=== PATIENT | male | born 1945 | race Two or more races ===

== ENCOUNTER 2017-02-14 08:46 | Outpatient (CLI) | payer MEDICARE, OTHER ==
[2017-02-14 13:38] LABS: CALCIUM 9.1 mg/dL (8.5-10.3); CREATININE 0.9 mg/dL (0.6-1.2); POTASSIUM 3.9 mmol/L (3.5-5.0)
[2017-02-14 13:54] LABS: HEMOGLOBIN A1C 0.82 g/dL
== END 2017-02-14 08:47 | disposition home or self-care (01) ==
LOC: LAB.WCP 08:46
PROVIDERS: ATTEND Family Medicine
DX: E78.5 Hyperlipidemia, unspecified (principal)
CPT/HCPCS: 36415; 80048; 83036

== ENCOUNTER 2017-09-02 07:40 | Outpatient (CLI) | payer MEDICARE, OTHER ==
[2017-09-02 12:32] LABS: BASOPHILS % (AUTO) 0.5 %; EOSINOPHILS # (AUTO) 0.3 10^3/uL (0.0-0.7); EOSINOPHILS % (AUTO) 5.8 %; HCT - HEMATOCRIT 37.1 % (42.0-52.0); LYMPHOCYTES # (AUTO) 2.5 10^3/uL (1.5-3.5); LYMPHOCYTES % (AUTO) 44.2 %; MEAN CORPUSCULAR VOLUME 91.4 fL (80.0-94.0); MEAN PLATELET VOLUME 8.8 fL (7.4-11.4); MONOCYTES # (AUTO) 0.4 10^3/uL (0.0-1.0); MONOCYTES % (AUTO) 7.6 %; NEUTROPHILS # (AUTO) 2.3 10^3/uL (1.5-6.6); NEUTROPHILS % (AUTO) 41.9 %; RED BLOOD COUNT 4.06 10^6/uL (4.70-6.10); RED CELL DISTRIBUTION WIDTH 13.8 % (12.0-15.0); UNCORRECTED WHITE BLOOD COUNT 5.5 x10^3/uL; WHITE BLOOD COUNT 5.5 x10^3/uL (4.8-10.8)
[2017-09-02 12:59] LABS: ALBUMIN/GLOBULIN RATIO 1.3 (1.0-2.2); BILIRUBIN,TOTAL 0.6 mg/dL (0.2-1.0); BUN - BLOOD UREA NITROGEN 29 mg/dL (6-20); CALCIUM 8.9 mg/dL (8.5-10.3); CARBON DIOXIDE - CO2 25 mmol/L (21-32); CHLORIDE 102 mmol/L (101-111); CHOL/HDL RATIO 2.9 (<5.0); CHOLESTEROL 141 mg/dL; CREATININE 0.9 mg/dL (0.6-1.2); GFR - MDRD 83 (>89); GLUCOSE 141 mg/dL (70-100); HDL CHOLESTEROL 48 mg/dL; LDL/HDL RATIO 1.4 (<3.6); POTASSIUM 3.9 mmol/L (3.5-5.0); SODIUM 135 mmol/L (135-145); TOTAL PROTEIN 7.5 g/dL (6.7-8.2); TRIGLYCERIDES 122 mg/dL; VLDL CHOLESTEROL 24 mg/dL
[2017-09-02 13:08] LABS: HEMOGLOBIN A1C 0.7 g/dL
== END 2017-09-02 07:41 | disposition home or self-care (01) ==
LOC: LAB.WCP 07:40
PROVIDERS: ATTEND Family Medicine
DX: N18.9 Chronic kidney disease, unspecified (principal); Z79.899 Other long term (current) drug therapy; E78.5 Hyperlipidemia, unspecified; E11.9 Type 2 diabetes mellitus without complications; I10 Essential (primary) hypertension
CPT/HCPCS: 36415; 80053; 80061; 82043; 83036; 85025; G0103; 84153

== ENCOUNTER 2018-03-06 08:00 | Outpatient (CLI) | payer MEDICARE, OTHER ==
[2018-03-06 12:49] LABS: CREATININE 0.8 mg/dL (0.6-1.2)
[2018-03-06 13:37] LABS: HB2 TOTAL 14.1 g/dL; HEMOGLOBIN A1C 0.76 g/dL; HEMOGLOBIN A1C % 7.1 % (4.6-6.2)
== END 2018-03-06 08:01 ==
LOC: LAB.WCP 08:00
PROVIDERS: ATTEND Family Medicine
DX: Z12.5 Encounter for screening for malignant neoplasm of prostate (principal); E11.9 Type 2 diabetes mellitus without complications; N18.9 Chronic kidney disease, unspecified; E78.5 Hyperlipidemia, unspecified; I12.9 Hypertensive chronic kidney disease with stage 1 through stage 4 chronic kidney disease, or unspecified chronic kidney disease
CPT/HCPCS: 36415; 80048; 83036

== ENCOUNTER 2018-06-20 08:32 | Outpatient (CLI) | payer MEDICARE, OTHER ==
[2018-06-20 12:52] LABS: ALBUMIN 4.2 g/dL (3.2-5.5); ALBUMIN/GLOBULIN RATIO 1.3 (1.0-2.2); ALKALINE PHOSPHATASE 37 IU/L (42-121); ALT ALANINE AMINOTRANSFERASE 14 IU/L (10-60); AST ASPARTATE AMINOTRANSFERASE 24 IU/L (10-42); BILIRUBIN,TOTAL 0.8 mg/dL (0.2-1.0); BUN - BLOOD UREA NITROGEN 24 mg/dL (6-20); CALCIUM 8.7 mg/dL (8.5-10.3); CARBON DIOXIDE - CO2 26 mmol/L (21-32); CHLORIDE 102 mmol/L (101-111); CHOL/HDL RATIO 2.8 (<5.0); CHOLESTEROL 121 mg/dL; CREATININE 0.9 mg/dL (0.6-1.2); GFR - MDRD 83 (>89); GLUCOSE 124 mg/dL (70-100); HDL CHOLESTEROL 44 mg/dL; LDL CHOLESTEROL,CALCULATED 55 mg/dL; LDL/HDL RATIO 1.3 (<3.6); SODIUM 139 mmol/L (135-145); TOTAL PROTEIN 7.4 g/dL (6.7-8.2); VLDL CHOLESTEROL 22 mg/dL
[2018-06-20 13:08] LABS: HEMOGLOBIN A1C 0.71 g/dL; HEMOGLOBIN A1C % 6.8 % (4.6-6.2)
== END 2018-06-20 08:33 | disposition home or self-care (01) ==
LOC: LAB.WCP 08:32
PROVIDERS: ATTEND Family Medicine
DX: I10 Essential (primary) hypertension (principal); E11.22 Type 2 diabetes mellitus with diabetic chronic kidney disease; N18.9 Chronic kidney disease, unspecified
CPT/HCPCS: 36415; 80053; 80061; 82043; 83036; 83721

== ENCOUNTER 2018-10-17 08:00 | Outpatient (CLI) | payer MEDICARE, OTHER ==
[2018-10-17 14:01] LABS: ALBUMIN 3.9 g/dL (3.2-5.5); ALBUMIN/GLOBULIN RATIO 1.3 (1.0-2.2); BILIRUBIN,TOTAL 0.6 mg/dL (0.2-1.0); CALCIUM 9.1 mg/dL (8.5-10.3); CREATININE 0.8 mg/dL (0.6-1.2)
[2018-10-17 15:26] LABS: HB2 TOTAL 13.8 g/dL; HEMOGLOBIN A1C 0.67 g/dL; HEMOGLOBIN A1C % 6.6 % (4.6-6.2)
== END 2018-10-17 23:59 | disposition home or self-care (01) ==
LOC: LAB.WCP 08:00
PROVIDERS: ATTEND Family Medicine
DX: E11.40 Type 2 diabetes mellitus with diabetic neuropathy, unspecified (principal); I10 Essential (primary) hypertension
CPT/HCPCS: 36415; 80053; 82043; 83036

== ENCOUNTER 2019-04-15 08:35 | Outpatient (CLI) | payer MEDICARE, OTHER ==
[2019-04-15 12:47] LABS: BASOPHILS % (AUTO) 0.3 %; EOSINOPHILS # (AUTO) 0.3 10^3/uL (0.0-0.7); EOSINOPHILS % (AUTO) 5.2 %; LYMPHOCYTES # (AUTO) 2.1 10^3/uL (1.5-3.5); MEAN CORPUSCULAR HEMOGLOBIN 30.9 pg (27.0-31.0); MEAN CORPUSCULAR HGB CONC 32.4 g/dL (32.0-36.0); MEAN CORPUSCULAR VOLUME 95.4 fL (80.0-94.0); MEAN PLATELET VOLUME 10.7 fL (7.4-11.4); MONOCYTES # (AUTO) 0.5 10^3/uL (0.0-1.0); MONOCYTES % (AUTO) 8.7 %; NEUTROPHILS % (AUTO) 50.5 %; PLT - PLATELET COUNT 186 10^3/uL (130-450); RED BLOOD COUNT 3.88 10^6/uL (4.70-6.10); RED CELL DISTRIBUTION WIDTH 13.7 % (12.0-15.0)
[2019-04-15 13:28] LABS: RBC MORPHOLOGY (MULTIPLE) 1+ ANISOCYTOSIS (NORMAL)
[2019-04-15 14:07] LABS: HB2 TOTAL 13.1 g/dL; HEMOGLOBIN A1C 0.62 g/dL; HEMOGLOBIN A1C % 6.5 % (4.6-6.2)
[2019-04-15 14:23] LABS: ALBUMIN/GLOBULIN RATIO 1.4 (1.0-2.2); ALKALINE PHOSPHATASE 36 IU/L (42-121); ALT ALANINE AMINOTRANSFERASE < 10 IU/L (10-60); AST ASPARTATE AMINOTRANSFERASE 18 IU/L (10-42); BILIRUBIN,TOTAL 0.7 mg/dL (0.2-1.0); BUN - BLOOD UREA NITROGEN 25 mg/dL (6-20); CALCIUM 9.1 mg/dL (8.5-10.3); CARBON DIOXIDE - CO2 25 mmol/L (21-32); CHLORIDE 102 mmol/L (101-111); CREATININE 0.8 mg/dL (0.6-1.2); GFR - MDRD 95 (>89); GLUCOSE 133 mg/dL (70-100); SODIUM 139 mmol/L (135-145); TOTAL PROTEIN 6.8 g/dL (6.7-8.2)
== END 2019-04-15 08:36 | disposition home or self-care (01) ==
LOC: LAB.WCP 08:35
PROVIDERS: ATTEND Family Medicine
DX: Z00.00 Encounter for general adult medical examination without abnormal findings (principal); E78.5 Hyperlipidemia, unspecified; E11.9 Type 2 diabetes mellitus without complications; I10 Essential (primary) hypertension
CPT/HCPCS: 36415; 80053; 83036; 84443; 85025

== ENCOUNTER 2020-03-21 09:20 | Outpatient (CLI) | payer MEDICARE, OTHER ==
[2020-03-21 13:12] LABS: BASOPHILS % (AUTO) 0.6 %; EOSINOPHILS # (AUTO) 0.2 10^3/uL (0.0-0.7); EOSINOPHILS % (AUTO) 4.1 %; HGB - HEMOGLOBIN 12.5 g/dL (14.0-18.0); LYMPHOCYTES # (AUTO) 2.2 10^3/uL (1.5-3.5); LYMPHOCYTES % (AUTO) 44.1 %; MEAN CORPUSCULAR HEMOGLOBIN 32.8 pg (27.0-31.0); MEAN CORPUSCULAR HGB CONC 33.2 g/dL (32.0-36.0); MEAN CORPUSCULAR VOLUME 98.7 fL (80.0-94.0); MEAN PLATELET VOLUME 11.5 fL (7.4-11.4); MONOCYTES # (AUTO) 0.4 10^3/uL (0.0-1.0); MONOCYTES % (AUTO) 7.1 %; NEUTROPHILS # (AUTO) 2.2 10^3/uL (1.5-6.6); NEUTROPHILS % (AUTO) 43.7 %; PLT - PLATELET COUNT 169 10^3/uL (130-450); RED BLOOD COUNT 3.81 10^6/uL (4.70-6.10); RED CELL DISTRIBUTION WIDTH 13.9 % (12.0-15.0); WHITE BLOOD COUNT 4.9 x10^3/uL (4.8-10.8)
[2020-03-21 13:43] LABS: ALBUMIN 4.5 g/dL (3.2-5.5); ALBUMIN/GLOBULIN RATIO 1.7 (1.0-2.2); ALKALINE PHOSPHATASE 27 IU/L (42-121); ALT ALANINE AMINOTRANSFERASE 11 IU/L (10-60); AST ASPARTATE AMINOTRANSFERASE 19 IU/L (10-42); BILIRUBIN,TOTAL 1.1 mg/dL (0.2-1.0); BUN - BLOOD UREA NITROGEN 28 mg/dL (6-20); CALCIUM 9.3 mg/dL (8.5-10.3); CARBON DIOXIDE - CO2 29 mmol/L (21-32); CHLORIDE 100 mmol/L (101-111); CHOL/HDL RATIO 2.1 (<5.0); CHOLESTEROL 146 mg/dL; GLUCOSE 122 mg/dL (70-100); HDL CHOLESTEROL 71 mg/dL; LDL CHOLESTEROL,CALCULATED 63 mg/dL; LDL/HDL RATIO 0.9 (<3.6); SODIUM 138 mmol/L (135-145); TOTAL PROTEIN 7.2 g/dL (6.7-8.2); VLDL CHOLESTEROL 12 mg/dL
[2020-03-21 14:01] LABS: CREATININE,URINE 66.7 mg/dL; MICROALBUMIN,URINE 5.4 mg/dL (0-300.0)
[2020-03-21 14:16] LABS: HB2 TOTAL 12.1 g/dL; HEMOGLOBIN A1C 0.51 g/dL
== END 2020-03-21 23:59 | disposition home or self-care (01) ==
LOC: LAB.WCP 09:20
PROVIDERS: ATTEND Family Medicine
DX: E78.5 Hyperlipidemia, unspecified (principal); E11.9 Type 2 diabetes mellitus without complications; I10 Essential (primary) hypertension
CPT/HCPCS: 36415; 80053; 80061; 82043; 82570; 83036; 83721; 84443; 85025

== ENCOUNTER 2020-07-04 09:40 | Outpatient (CLI) | payer MEDICARE, OTHER ==
[2020-07-04 12:28] LABS: CALCIUM 9.5 mg/dL (8.5-10.3)
[2020-07-04 13:16] LABS: HEMOGLOBIN A1c% 6.1 % (4.27-6.07)
== END 2020-07-04 23:59 | disposition home or self-care (01) ==
LOC: LAB.WCP 09:40
PROVIDERS: ATTEND Family Medicine
DX: E11.9 Type 2 diabetes mellitus without complications (principal); R60.0 Localized edema; E78.5 Hyperlipidemia, unspecified; N40.1 Benign prostatic hyperplasia with lower urinary tract symptoms
CPT/HCPCS: 36415; 80048; 83036

== ENCOUNTER 2020-09-19 08:00 | Outpatient (CLI) | payer MEDICARE, OTHER ==
[2020-09-19 13:07] LABS: CALCIUM 9.4 mg/dL (8.5-10.3); CREATININE 1.1 mg/dL (0.6-1.2)
[2020-09-19 13:57] LABS: HEMOGLOBIN A1c% 6.2 % (4.27-6.07)
== END 2020-09-19 23:59 | disposition home or self-care (01) ==
LOC: LAB.WCP 08:00
PROVIDERS: ATTEND Nurse Practitioner Family
DX: N40.1 Benign prostatic hyperplasia with lower urinary tract symptoms (principal); N13.8 Other obstructive and reflux uropathy; E11.9 Type 2 diabetes mellitus without complications; I10 Essential (primary) hypertension
CPT/HCPCS: 36415; 80048; 82043; 83036

== ENCOUNTER 2021-01-07 10:57 | Outpatient (CLI) | payer MEDICARE, OTHER ==
--- NOTE | 2021-01-07 13:21 | XRAY Report ---
PROCEDURE: Knee Standing BILAT INDICATIONS: BILATERAL KNEE PAIN TECHNIQUE: 3 views of each knee were acquired, including weightbearing views of both knees together. COMPARISON: None. FINDINGS: Bones: No acute fractures or dislocations. No suspicious bony lesions. There is moderate to prominent medial femorotibial joint space narrowing, on both sides, right worse than left with associated degenerative change with subchondral sclerosis and osteophyte formation. Soft tissues: No knee joint effusions. No suspicious soft tissue calcification. IMPRESSION: Osteoarthritic degenerative changes are seen, which are most prominent involving the medial femorotib ial compartment of both knees, right worse than left. If there is strong clinical concern for internal derangement of the knee, please consider a dedicated knee MRI for further evaluation (assuming that there is no contraindication). Reviewed by: Igor Oliver MD on 01/07/2021 12:19 PM [facility] Approved by: Igor Oliver MD on 01/07/2021 12:19 PM [facility] Station ID: [id number]
== END 2021-01-07 10:58 | disposition home or self-care (01) ==
LOC: DI 10:57
PROVIDERS: ATTEND Nurse Practitioner Family
DX: M17.0 Bilateral primary osteoarthritis of knee (principal)

== ENCOUNTER 2021-02-24 09:04 | Outpatient (CLI) | payer MEDICARE, OTHER ==
[2021-02-24 11:51] LABS: BASOPHILS % (AUTO) 0.6 %; EOSINOPHILS # (AUTO) 0.3 10^3/uL (0.0-0.7); EOSINOPHILS % (AUTO) 5.4 %; HCT - HEMATOCRIT 39.4 % (42.0-52.0); HGB - HEMOGLOBIN 13.2 g/dL (14.0-18.0); LYMPHOCYTES # (AUTO) 1.5 10^3/uL (1.5-3.5); MEAN CORPUSCULAR HEMOGLOBIN 31.5 pg (27.0-31.0); MEAN CORPUSCULAR HGB CONC 33.5 g/dL (32.0-36.0); MEAN PLATELET VOLUME 10.8 fL (7.4-11.4); MONOCYTES # (AUTO) 0.4 10^3/uL (0.0-1.0); MONOCYTES % (AUTO) 7.6 %; NEUTROPHILS # (AUTO) 2.8 10^3/uL (1.5-6.6); NEUTROPHILS % (AUTO) 56.4 %; PLT - PLATELET COUNT 156 10^3/uL (130-450); RED BLOOD COUNT 4.19 10^6/uL (4.70-6.10); RED CELL DISTRIBUTION WIDTH 12.4 % (12.0-15.0)
[2021-02-24 12:20] LABS: ESTIMATED AVERAGE GLUCOSE 169 mg/dL (70-100); HEMOGLOBIN A1c% 7.5 % (4.27-6.07)
[2021-02-24 12:21] LABS: ALBUMIN 4.4 g/dL (3.2-5.5); ALBUMIN/GLOBULIN RATIO 1.5 (1.0-2.2); ALKALINE PHOSPHATASE 34 IU/L (42-121); ALT ALANINE AMINOTRANSFERASE < 10 IU/L (10-60); AST ASPARTATE AMINOTRANSFERASE 20 IU/L (10-42); BILIRUBIN,TOTAL 0.9 mg/dL (0.2-1.0); BUN - BLOOD UREA NITROGEN 28 mg/dL (6-20); CALCIUM 9.3 mg/dL (8.5-10.3); CARBON DIOXIDE - CO2 27 mmol/L (21-32); CHLORIDE 102 mmol/L (101-111); CHOL/HDL RATIO 2.8 (<5.0); CHOLESTEROL 158 mg/dL; GFR - MDRD 73 (>89); GLUCOSE 188 mg/dL (70-100); HDL CHOLESTEROL 56 mg/dL; LDL CHOLESTEROL,CALCULATED 74 mg/dL; LDL/HDL RATIO 1.3 (<3.6); POTASSIUM 4.1 mmol/L (3.5-5.0); SODIUM 138 mmol/L (135-145); TOTAL PROTEIN 7.4 g/dL (6.7-8.2); TRIGLYCERIDES 142 mg/dL; VLDL CHOLESTEROL 28 mg/dL
[2021-02-24 12:27] LABS: THYROID STIMULATING HORMONE 1.3 uIU/mL (0.34-5.60)
== END 2021-02-24 23:59 | disposition home or self-care (01) ==
LOC: LAB.WCP 09:04
PROVIDERS: ATTEND Nurse Practitioner Family
DX: R00.1 Bradycardia, unspecified (principal); Z79.899 Other long term (current) drug therapy; E78.5 Hyperlipidemia, unspecified; E11.9 Type 2 diabetes mellitus without complications; I10 Essential (primary) hypertension
CPT/HCPCS: 36415; 80053; 80061; 83036; 83721; 84443; 85025

== ENCOUNTER 2021-06-27 08:00 | Outpatient (CLI) | payer MEDICARE, OTHER ==
[2021-06-27 12:14] LABS: BASOPHILS % (AUTO) 0.7 %; EOSINOPHILS # (AUTO) 0.2 10^3/uL (0.0-0.7); EOSINOPHILS % (AUTO) 4.1 %; HCT - HEMATOCRIT 38.4 % (42.0-52.0); HGB - HEMOGLOBIN 12.7 g/dL (14.0-18.0); LYMPHOCYTES # (AUTO) 1.5 10^3/uL (1.5-3.5); MEAN CORPUSCULAR HGB CONC 33.1 g/dL (32.0-36.0); MEAN CORPUSCULAR VOLUME 93.7 fL (80.0-94.0); MEAN PLATELET VOLUME 10.8 fL (7.4-11.4); MONOCYTES # (AUTO) 0.3 10^3/uL (0.0-1.0); MONOCYTES % (AUTO) 8.2 %; NEUTROPHILS # (AUTO) 2.1 10^3/uL (1.5-6.6); PLT - PLATELET COUNT 191 10^3/uL (130-450); RED CELL DISTRIBUTION WIDTH 12.5 % (12.0-15.0); WHITE BLOOD COUNT 4.2 x10^3/uL (4.8-10.8)
[2021-06-27 12:23] LABS: CREATININE,URINE 229.8 mg/dL; MICROALBUMIN,URINE 2.3 mg/dL (0-300.0)
[2021-06-27 12:36] LABS: ESTIMATED AVERAGE GLUCOSE 160 mg/dL (70-100); HEMOGLOBIN A1c% 7.2 % (4.27-6.07)
[2021-06-27 12:39] LABS: THYROID STIMULATING HORMONE 1.3 uIU/mL (0.34-5.60)
[2021-06-27 13:13] LABS: ALBUMIN 4.5 g/dL (3.2-5.5); ALBUMIN/GLOBULIN RATIO 1.6 (1.0-2.2); ALKALINE PHOSPHATASE 28 IU/L (42-121); ALT ALANINE AMINOTRANSFERASE < 10 IU/L (10-60); AST ASPARTATE AMINOTRANSFERASE 21 IU/L (10-42); BILIRUBIN,TOTAL 0.7 mg/dL (0.2-1.0); BUN - BLOOD UREA NITROGEN 19 mg/dL (6-20); CALCIUM 9.4 mg/dL (8.5-10.3); CARBON DIOXIDE - CO2 26 mmol/L (21-32); CHLORIDE 103 mmol/L (101-111); CHOL/HDL RATIO 2.4 (<5.0); CHOLESTEROL 137 mg/dL; CREATININE 1.1 mg/dL (0.6-1.2); GFR - MDRD 65 (>89); GLUCOSE 172 mg/dL (70-100); HDL CHOLESTEROL 56 mg/dL; LDL CHOLESTEROL,CALCULATED 54 mg/dL; POTASSIUM 3.7 mmol/L (3.5-5.0); TOTAL PROTEIN 7.4 g/dL (6.7-8.2); TRIGLYCERIDES 133 mg/dL; VLDL CHOLESTEROL 27 mg/dL
[2021-06-27 13:17] LABS: SODIUM 139 mmol/L (135-145)
== END 2021-06-27 23:59 | disposition home or self-care (01) ==
LOC: LAB.WCP 08:00
PROVIDERS: ATTEND Internal Medicine
DX: I12.9 Hypertensive chronic kidney disease with stage 1 through stage 4 chronic kidney disease, or unspecified chronic kidney disease (principal); N18.9 Chronic kidney disease, unspecified; Z79.899 Other long term (current) drug therapy; R60.0 Localized edema; E78.5 Hyperlipidemia, unspecified; E11.9 Type 2 diabetes mellitus without complications; Z79.4 Long term (current) use of insulin
CPT/HCPCS: 36415; 80053; 80061; 82043; 82570; 83036; 83721; 84443; 85025

== ENCOUNTER 2021-07-07 15:43 | Outpatient (CLI) | payer MEDICARE, OTHER ==
--- NOTE | 2021-07-07 17:13 | XRAY Report ---
PROCEDURE: Lumbar Spine 2 View INDICATIONS: DJD, LUMBAR SPINE TECHNIQUE: 3 views of the lumbar spine were acquired. COMPARISON: None. FINDINGS: Bones: 5 [id number] vertebrae are present. There is grade 1 retrolisthesis of L2 on L3. Degene rative endplate changes are noted at L2-3 through L5-S1 levels. Bilateral facet arthrosis is also see n. No vertebral body compression fractures. No suspicious bony lesions. Soft tissues: Overlying bowel gas pattern is normal. No suspicious soft tissue calcifications. IMPRESSION: Grade 1 retrolisthesis of L2 on L3. Degenerative disc disease throughout lumbar spine. N o acute compression fracture. Reviewed by: Allan Ramirez MD on 07/07/2021 5:11 PM PDT Approved by: Allan Ramirez MD on 07/07/2021 5:11 PM PDT Station ID: [id number]
== END 2021-07-07 15:44 | disposition home or self-care (01) ==
LOC: DI.N 15:43
PROVIDERS: ATTEND Internal Medicine
DX: M47.816 Spondylosis without myelopathy or radiculopathy, lumbar region (principal); M43.16 Spondylolisthesis, lumbar region; M51.36 Other intervertebral disc degeneration, lumbar region; M51.37 Other intervertebral disc degeneration, lumbosacral region

== ENCOUNTER 2021-09-02 12:22 | Outpatient (CLI) | payer MEDICARE, OTHER ==
--- NOTE | 2021-09-02 14:15 | XRAY Report ---
PROCEDURE: Lumbar Spine 2 View INDICATIONS: DEGENERATIVE JOINT DISEASE, LUMBAR SPINE TECHNIQUE: 3 views of the lumbar spine were acquired. COMPARISON: None. FINDINGS: Bones: 5 [id number] vertebrae are present. The lower lumbar spine demonstrates facet arthrosis . There is normal bony alignment. No vertebral body compression fractures. No suspicious bony lesio ns. L2-3 has mild disc space narrowing. Soft tissues: Overlying bowel gas pattern is normal. No suspicious soft tissue calcifications. The aorta has atherosclerotic calcifications. IMPRESSION: 1. No acute abnormality of the lumbar spine. 2. Mild degenerative changes and facet arthrosis. 3. Mild disc space narrowing at L2-3. Reviewed by: Chencho Monreal on 09/02/2021 1:14 PM [facility] Approved by: Chencho Monreal on 09/02/2021 1:14 PM [facility] Station ID: [id number]
--- NOTE | 2021-09-02 14:17 | Ultrasound Report ---
PROCEDURE: Aorta Screening INDICATIONS: HIST OF SMOKING TECHNIQUE: Real time scanning was performed of the aorta and iliac arteries, with image documentatio n. COMPARISON: None FINDINGS: Aorta: Proximal aortic diameter measures 2.8 x 2.5 cm. Mid-aorta measures 2.1 x 1.9 cm. Distal aor tic diameter is 2.1 x 1.8 cm. Atherosclerotic changes are noted. Iliac arteries: Right common iliac artery measures 1.3 x 1.1 cm. Left common iliac artery measures 1.2 x 1.1 cm. IMPRESSION: Normal caliber of the abdominal aorta. Reviewed by: Chencho Monreal on 09/02/2021 1:16 PM [facility] Approved by: Chencho Monreal on 09/02/2021 1:16 PM [facility] Station ID: [id number]
== END 2021-09-02 12:23 | disposition home or self-care (01) ==
LOC: DI 12:22
PROVIDERS: ATTEND Internal Medicine
DX: M47.896 Other spondylosis, lumbar region (principal); Z87.891 Personal history of nicotine dependence

== ENCOUNTER 2021-09-29 08:00 | Outpatient (CLI) | payer MEDICARE, OTHER ==
[2021-09-29 18:14] LABS: CALCIUM 9.6 mg/dL (8.5-10.3)
[2021-09-29 21:03] LABS: ESTIMATED AVERAGE GLUCOSE 163 mg/dL (70-100); HEMOGLOBIN A1c% 7.3 % (4.27-6.07)
== END 2021-09-29 23:59 | disposition home or self-care (01) ==
LOC: LAB.WCP 08:00
PROVIDERS: ATTEND Internal Medicine
DX: E11.42 Type 2 diabetes mellitus with diabetic polyneuropathy (principal)
CPT/HCPCS: 36415; 80048; 83036

== ENCOUNTER 2021-10-12 12:57 | Emergency (ER) | payer MEDICARE, OTHER ==
--- NOTE | 2021-10-12 13:35 | ED Physician Documentation ---
PD HPI BACK PAIN - Stated complaint Stated Complaint: WEAKNESS - Chief complaint Chief Complaint: General - History obtained from History obtained from: Patient - Additional information Additional information: 75-year-old gentleman with history of hypertension and type 2 diabetes presents with back pain. The onset was insidious and therefore hard to get a timeframe on it but at least maybe a couple of months in the low back with progressive weakness especially bad over the last couple of days. He has bilateral shoulder pain but since yesterday he is too weak to walk without assistance and his leg gives out on him especially the left. He is incontinent of stool. He has no history of malignancy. Review of Systems Ten Systems: 10 systems reviewed and negative Constitutional: denies: Fever, Chills Cardiac: reports: Reviewed and negative Respiratory: reports: Reviewed and negative PD PAST MEDICAL HISTORY - Past Medical History Past Medical History: Yes Cardiovascular: Hypertension Endocrine/Autoimmune: Type 2 diabetes - Past Surgical History Past Surgical History: Yes General: Other (Ex lap for SBO per his description about 2014) - Allergies Allergies/Adverse Reactions: Allergies Allergy/AdvReac Type Severity Reaction Status Date / Time No Known Drug Allergies Allergy Verified 10/12/21 13:15 - Social History Smoking Status: Former smoker - Family History Family history: reports: Non contributory PD ED PE NORMAL - Vitals Vital signs reviewed: Yes - General General: Alert and oriented X 3, No acute distress - HEENT HEENT: PERRL, EOMI - Neck Neck: Supple, no meningeal sign, No bony TTP - Cardiac Cardiac: RRR, No murmur - Respiratory Respiratory: No respiratory distress, Clear bilaterally - Abdomen Abdomen: Normal bowel sounds, Soft, Non tender - Rectal Rectal: Other (Rectal examination demonstrates severely diminished rectal tone, when asked him to squeeze barely notable rectal tone is present. 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 He is especially weak in the left lower extremity, flexion extension at the ankle, but sensation is symmetric throughout the lower extremities.) Eye Opening: Spontaneous Motor: Obeys Commands Verbal: Oriented GCS Score: 15 - Psych Psych: Normal mood, Normal affect Results - Vitals Vitals: Vital Signs - 24 hr 10/12/21 10/12/21 10/12/21 13:06 15:15 17:00 Temperature 36.3 C L 36.4 C L 36.7 C Heart Rate 75 73 64 Respiratory 16 15 16 Rate Blood Pressure 101/60 102/75 106/64 O2 Saturation 99 96 100 10/12/21 10/12/21 10/12/21 19:00 21:01 22:31 Temperature Heart Rate 72 84 91 Respiratory 16 16 Rate Blood Pressure 118/68 100/74 95/61 O2 Saturation 100 100 97 10/12/21 23:15 Temperature Heart Rate 90 Respiratory 20 Rate Blood Pressure 119/66 O2 Saturation Oxygen O2 Source Room air - EKG (time done) 1326 Rate: Rate (enter#) (81) Rhythm: NSR Intervals: LBBB Computer interpretation: Agree with computer - Labs Labs: Laboratory Tests 10/12/21 10/12/21 10/12/21 13:34 13:34 15:52 WBC 7.6 RBC 4.32 L Hgb 13.5 L Hct 39.3 L MCV 91.0 MCH 31.3 H MCHC 34.4 RDW 12.4 Plt Count 195 MPV 10.4 Neut # (Auto) 5.0 Lymph # (Auto) 1.8 [place] # (Auto) 0.5 Eos # (Auto) 0.3 Baso # (Auto) 0.0 Absolute Nucleated RBC 0.00 Nucleated RBC % 0.0 Sodium 133 L Potassium 3.8 Chloride 99 L Carbon Dioxide 21 Anion Gap 13.0 BUN 25 H Creatinine 1.1 Estimated GFR (MDRD) 65 L Glucose 163 H Calcium 9.4 Nasal Adenovirus (PCR) NOT DETECTED Nasal B. parapertussis DNA (PCR) NOT DETECTED Nasal Coronavir 229E PCR NOT DETECTED Nasal Coronavir HKU1 PCR NOT DETECTED Nasal Coronavir NL63 PCR NOT DETECTED Nasal Coronavir OC43 PCR NOT DETECTED Nasal Enterovir/Rhinovir PCR NOT DETECTED Nasal Influenza B PCR NOT DETECTED Nasal Influenza A PCR NOT DETECTED Nasal Parainfluen 1 PCR NOT DETECTED Nasal Parainfluen 2 PCR NOT DETECTED Nasal Parainfluen 3 PCR NOT DETECTED Nasal Parainfluen 4 PCR NOT DETECTED Nasal RSV (PCR) NOT DETECTED Nasal B.pertussis DNA PCR NOT DETECTED Nasal C.pneumoniae (PCR) NOT DETECTED Enrique Human Metapneumo PCR NOT DETECTED Nasal M.pneumoniae (PCR) NOT DETECTED Nasal SARS-CoV-2 (PCR) NOT DETECTED - Rads (name of study) CT thoracic spine is unremarkable Radiology: EMP read contemporaneously CT L spine Radiology: EMP read contemporaneously (CT of the lumbar spine shows multifactorial degenerative changes with moderate canal stenosis at L3 and L4 and flattening of the thecal sac at L4-L5 with multilevel foraminal stenosis most severe at the left L5-S1) PD MEDICAL DECISION MAKING - ED course ED course: 75-year-old gentleman with low back pain and progressive weakness, incontinent of stool and left greater than right leg weakness. This is concerning for cauda equina and given his age potentially malignancy. An MRI was ordered, his pacemaker is "MRI conditional" and our digital tech tells me we cannot do this procedure here. Lumbar and thoracic spine CTs were ordered in lieu of this pending further work-up. Lumbar spine CT as shown above, his cauda equina presentation is likely multifactorial due to the severe neuroforaminal stenosis on the left L5-S1 and spinal stenosis at L3-L4 and L4-L5. His son is a CT ICU nurse and I discussed this with him by phone. He works at [employer], and understands the patient cannot be transferred there as the [facility] is well over capacity to to [facility]. We called [facility] which had beds earlier in the day and is now full. His son confirmed that the patient has lost basically all functionality over the last 48 hours and as such I do think he needs urgent neurosurgical evaluation. He was given IV dexamethasone. Subsequently I spoke with Dr. Jose Barrientos, neurosurgery at [facility] who reviewed his scans and we discussed his neurologic presentation. He did not feel like this was an acute spinal issue and deferred to medicine for admission. The transfer center there will have the hospitalist call me back. Subsequently [facility] reached capacity and could not accept. [facility] considering case, care to oncoming ED MD at shift change pending call back. Departure - Departure Disposition: 02 Transfer Acute Care Hosp Clinical Impression: Cauda equina syndrome, Lumbar radiculopathy, acute Bowel incontinence Qualifiers: Fecal incontinence type: full incontinence of feces Qualified Code(s): R15.9 - Full incontinence of feces Condition: Serious Discharge Date/Time: 10/12/21 23:54
[2021-10-12 13:43] LABS: BASOPHILS % (AUTO) 0.3 %; EOSINOPHILS # (AUTO) 0.3 10^3/uL (0.0-0.7); EOSINOPHILS % (AUTO) 3.6 %; HCT - HEMATOCRIT 39.3 % (42.0-52.0); HGB - HEMOGLOBIN 13.5 g/dL (14.0-18.0); LYMPHOCYTES # (AUTO) 1.8 10^3/uL (1.5-3.5); LYMPHOCYTES % (AUTO) 23.7 %; MEAN CORPUSCULAR HEMOGLOBIN 31.3 pg (27.0-31.0); MEAN CORPUSCULAR HGB CONC 34.4 g/dL (32.0-36.0); MEAN PLATELET VOLUME 10.4 fL (7.4-11.4); MONOCYTES # (AUTO) 0.5 10^3/uL (0.0-1.0); MONOCYTES % (AUTO) 6.5 %; NEUTROPHILS % (AUTO) 65.6 %; PLT - PLATELET COUNT 195 10^3/uL (130-450); RED BLOOD COUNT 4.32 10^6/uL (4.70-6.10); RED CELL DISTRIBUTION WIDTH 12.4 % (12.0-15.0); WHITE BLOOD COUNT 7.6 x10^3/uL (4.8-10.8)
[2021-10-12 13:52] LABS: CALCIUM 9.4 mg/dL (8.5-10.3); CREATININE 1.1 mg/dL (0.6-1.2); POTASSIUM 3.8 mmol/L (3.5-5.0)
--- NOTE | 2021-10-12 15:23 | CT Report ---
PROCEDURE: LUMBAR SPINE WO INDICATIONS: cauda equina, pacemaker TECHNIQUE: Noncontrast 3 mm thick sections acquired from the T12 level to the sacrum. Sagittal and coronal refo rmats were constructed. For radiation dose reduction, the following was used: automated exposure co ntrol, adjustment of mA and/or kV according to patient size. COMPARISON: None. FINDINGS: Normal lumbar vertebral body height and alignment. No suspicious focal marrow signal abnormality or b one marrow edema. Aortic atherosclerosis. Regional soft tissues are otherwise within normal limits. At T12-L1, no spinal canal or neural foraminal stenosis. At L1-L2, no spinal canal or neural foraminal stenosis. At L2-L3, diffuse disc bulge and a superimposed broad-based posterior disc protrusion flattens the ve ntral thecal sac producing mild spinal canal stenosis. There is also mild bilateral neural foraminal narrowing, left greater than right. At L3-L4, diffuse disc bulge and a superimposed broad-based posterior disc protrusion combined with b uckling of the ligamentum flavum to produce at least moderate spinal canal stenosis. There is mild bi lateral neural foraminal narrowing also. At L4-L5, diffuse disc bulge and a superimposed broad-based posterior disc protrusion with flattening and indentation of the ventral thecal sac and probable displacement of the descending L4 nerve roots . Mild bilateral neural foraminal stenosis. At L5-S1, diffuse disc bulge with abutment and mild displacement of the descending S1 nerve roots and both subarticular zones. Severe left and moderate right neural foraminal stenosis IMPRESSION: Multilevel multifactorial degenerative changes with spinal canal stenosis most pronounced at L3-L4 an d L5-S1. Varying degrees of neural foraminal stenosis up to severe on the left at L5-S1. Reviewed by: Nicholas Blackmon MD on 10/12/2021 3:22 PM PST Approved by: Nicholas Blackmon MD on 10/12/2021 3:22 PM PST Station ID: [id number]
--- NOTE | 2021-10-12 15:25 | CT Report ---
PROCEDURE: THORACIC SPINE WO INDICATIONS: cauda equina, pacemaker TECHNIQUE: Noncontrast 3 mm thick sections acquired through the region of interest in the thoracic spine. Sagit daria and coronal reformats were then constructed. For radiation dose reduction, the following was used : automated exposure control, adjustment of mA and/or kV according to patient size. COMPARISON: None. FINDINGS: Moderate dextroscoliosis in the upper thoracic spine. No listhesis. Vertebral body heights maintained . No suspicious lytic or blastic osseous lesion. No spinal canal or neural foraminal stenosis. Mild degenerative endplate changes in the thoracic spin e with associated disc height loss. Regional soft tissues are within normal limits. IMPRESSION: No spinal canal or neural foraminal stenosis and thoracic spine. Reviewed by: Nicholas Blackmon MD on 10/12/2021 3:23 PM PST Approved by: Nicholas Blackmon MD on 10/12/2021 3:23 PM PST Station ID: [id number]
[2021-10-12] MEDS: DEXAMETHASONE 10 MG/ML VIAL IVP STA (15:41)
[2021-10-12 17:11] LABS: B. PARAPERTUSSIS- RESP PCR PAN NOT DETECTED; B. PERTUSSIS- RESP PCR PANEL NOT DETECTED; C. PNEUMONIAE- RESP PCR PANEL NOT DETECTED; CORONAVIRUS 229E-RESP PCR NOT DETECTED; CORONAVIRUS HKU1-RESP PCR NOT DETECTED; CORONAVIRUS NL63-RESP PCR NOT DETECTED; CORONAVIRUS OC43-RESP PCR NOT DETECTED; HUMAN METAPNEUMOVIRUS NOT DETECTED; INFLUENZA A- RESP PCR PANEL NOT DETECTED; INFLUENZA B - RESP PCR PANEL NOT DETECTED; M. PNEUMONIAE- RESP PCR PANEL NOT DETECTED; PARAINFLUENZA VIRUS 1 NOT DETECTED; PARAINFLUENZA VIRUS 2 NOT DETECTED; PARAINFLUENZA VIRUS 3 NOT DETECTED; PARAINFLUENZA VIRUS 4 NOT DETECTED; RHINOVIRUS/ENTEROVIRUS NOT DETECTED; RSV- RESP PCR PANEL NOT DETECTED; SARS-CoV-2 -RESP PCR PANEL NOT DETECTED
[2021-10-12 23:17] VITALS: BP 119/66
== END 2021-10-12 23:54 | disposition short-term general hospital (02) ==
LOC: ED 12:57
DX: M48.061 Spinal stenosis, lumbar region without neurogenic claudication (principal); M54.16 Radiculopathy, lumbar region; G83.4 Cauda equina syndrome; I10 Essential (primary) hypertension; E11.9 Type 2 diabetes mellitus without complications; Z95.0 Presence of cardiac pacemaker; Z20.822 Contact with and (suspected) exposure to COVID-19
CPT/HCPCS: 0202U; 36415; 80048; 85025; 93005; 96374; 99283

== ENCOUNTER 2021-10-12 23:48 | Outpatient (CLI) | payer MEDICARE, OTHER | END 2021-10-12 23:49 | disposition short-term general hospital (02) | LOC: EMS 23:48 | PROVIDERS: ATTEND Emergency Medicine | DX: M54.50 Low back pain, unspecified (principal); R29.818 Other symptoms and signs involving the nervous system; Z74.01 Bed confinement status | CPT/HCPCS: A0425; A0428 ==

== ENCOUNTER 2022-10-31 09:50 | Emergency (ER) | payer MEDICARE, OTHER ==
--- NOTE | 2022-10-31 11:27 | XRAY Report ---
PROCEDURE: Knee 4 View RT INDICATIONS: Trauma TECHNIQUE: 4 views of the right knee(s) were acquired. COMPARISON: None. FINDINGS: Bones: Cortical step-off of the lateral tibial plateau, seen only on one view. Joint compartment of joint space) aggressive metastasis. Soft tissues: No knee joint effusion. IMPRESSION: Cortical step-off of the lateral tibial plateau, seen only on one view. This probably re presents an osteophyte in the absence of a knee joint effusion. If this patient cannot bear weight, c onsider cross-sectional imaging for confirmation. Reviewed by: Michael Rodriguez on 10/31/2022 11:26 AM [facility] Approved by: Michael Rodriguez on 10/31/2022 11:26 AM PST Station ID: [id number]
--- NOTE | 2022-10-31 11:28 | XRAY Report ---
PROCEDURE: Shoulder 3 View RT INDICATIONS: shoulder pain. Fall from bed. TECHNIQUE: 3 views of the shoulder were acquired. COMPARISON: None. FINDINGS: Bones: No fractures or dislocations. No suspicious bony lesions. Visualized ribs appear intact. Soft tissues: No suspicious soft tissue calcifications. IMPRESSION: No acute bony abnormality. Reviewed by: Michael Rodriguez on 10/31/2022 11:27 AM [facility] Approved by: Michael Rodriguez on 10/31/2022 11:27 AM [facility] Station ID: [id number]
--- NOTE | 2022-10-31 12:56 | ED Physician Documentation ---
History of Present Illness - Stated complaint Stated Complaint: SHLDR PX, HIP PX S/P FALL - Chief complaint Chief Complaint: Trauma Ext - History obtained from History obtained from: Patient, Family - Additonal information Additional information: The patient comes to the emergency department chief complaint of right knee and shoulder pain after falling off his bed while trying to reach a pillow a couple of days ago. His states that he has had decreased mobility since his spinal surgery over the summer and has mostly been wheelchair dependent. He was on his hands and knees for several minutes while the was trying to get the Joyce lift set up to pick him up off the floor. The patient has had pain in both the right knee and the right shoulder since and has noticed increased swelling from baseline in the right knee. The patient states he can straighten his knee but it hurts. No other injuries or complaints. PD PAST MEDICAL HISTORY - Past Medical History Cardiovascular: Hypertension Endocrine/Autoimmune: Type 2 diabetes - Past Surgical History Past Surgical History: Yes General: Other (Ex lap for SBO per his description about 2014) - Allergies Allergies/Adverse Reactions: Allergies Allergy/AdvReac Type Severity Reaction Status Date / Time No Known Drug Allergies Allergy Verified 10/31/22 10:22 - Social History Does the pt smoke?: No Smoking Status: Former smoker Does the pt drink ETOH?: No Does the pt have substance abuse?: No PD ED PE NORMAL - Vitals Vital signs reviewed: Yes - General General: No acute distress, Well developed/nourished, Other (Alert, grossly oriented) - HEENT HEENT: Atraumatic, PERRL, EOMI, Moist mucous membranes - Neck Neck: Supple, no meningeal sign - Cardiac Cardiac: Strong equal pulses - Respiratory Respiratory: No respiratory distress - Derm Derm: Normal color, Warm and dry, No rash, Other (No contusion, abrasion, or laceration) - Extremities Extremities: No deformity, Other (Moderate edema right knee compared with mild edema left knee. Full extension with assistance right knee. Nearly full range of motion right shoulder without clicking or popping, but causes moderate pain per patient) - Neuro Neuro: medical staff services coordinator 2-12 intact, Normal speech, Other (Right and left sides equal.) - Psych Psych: Normal mood, Normal affect Results - Vitals Vitals: Vital Signs - 24 hr 10/31/22 10:18 Temperature 36.4 C L Heart Rate 74 Respiratory 16 Rate Blood Pressure 103/63 O2 Saturation 96 Oxygen O2 Source Room air - Rads (name of study) Right shoulder x-ray series Radiology: Final report received, See rad report (No acute findings) Right knee x-ray series Radiology: Final report received, See rad report (Cortical step-off tibial plateau seen only on one view, likely osteophyte.) PD Medical Decision Making - ED course Complexity details: reviewed results, re-evaluated patient, considered differential, d/w patient, d/w family ED course: The patient was treated symptomatically with Tylenol. He was sent for x-rays series of the right knee and right shoulder, neither which showed any remarkable acute findings. The patient is nonambulatory at baseline and per , was discharged from physical therapy about 6 months ago for lack of progress. We have discussed symptomatic management at home, as well as usual indications for return. No acute interventions are indicated at this time. Departure - Departure Disposition: 01 Home, Self Care Clinical Impression: Shoulder injury Qualifiers: Encounter type: initial encounter Laterality: right Qualified Code(s): S49.91XA - Unspecified injury of right shoulder and upper arm, initial encounter Knee injury Qualifiers: Encounter type: initial encounter Laterality: right Qualified Code(s): S89.91XA - Unspecified injury of right lower leg, initial encounter Condition: Stable Instructions: ED Contusion Shoulder, ED Contusion Hip Comments: Your shoulder x-ray looks good. Your knee x-ray shows what is most likely an osteophyte or "bone spur" in your knee. For now, there is no casting or splinting that needs to be done, and the most important thing is to use ice and heat, do range of motion exercises, and take Tylenol and ibuprofen as needed for discomfort, all of which we have discussed. Please continue your plans to follow-up for the neck and lumbar spine evaluation, you are scheduled to do.
[2022-10-31] MEDS ORDERED: ACETAMINOPHEN 325 MG TABLET PO STA (12:57)
[2022-10-31 13:31] VITALS: BP 104/63
== END 2022-10-31 13:31 | disposition home or self-care (01) ==
LOC: ED 09:50
DX: S49.91XA Unspecified injury of right shoulder and upper arm, initial encounter (principal); S89.91XA Unspecified injury of right lower leg, initial encounter; W06.XXXA Fall from bed, initial encounter; Z87.891 Personal history of nicotine dependence
CPT/HCPCS: 73030; 73564; 99283; 99284; A9270